=== PATIENT | male | born 2000 | race Two or more races ===

== ENCOUNTER 2022-05-01 16:12 | Emergency (ER) | payer SELFPAY ==
[~2022-05-01] VITALS: Ht 193 cm; Wt 125.0 kg
[2022-05-01 16:13] VITALS: BP 149/70
[2022-05-01] MEDS ORDERED: AMIT50TA PO (16:24)
== END 2022-05-02 04:11 | disposition left against medical advice (07) ==
LOC: M ED 16:12
DX: Z53.21 Procedure and treatment not carried out due to patient leaving prior to being seen by health care provider (principal)

== ENCOUNTER → 2022-06-14 | Outpatient (REF) ==
[~2022-06-14] MED LIST: AMIT50TA PO
== END ==
LOC: M PLAIMG 11:20
PROVIDERS: ATTEND Internal Medicine
DX: R06.02 Shortness of breath (principal)